=== PATIENT | female | born 1975 | race Caucasian/White ===

== ENCOUNTER 2023-04-12 10:57 | Outpatient (CLI) | payer BC | END 2023-04-12 10:58 | disposition home or self-care (01) | LOC: BICMAMMO 10:57 | PROVIDERS: ATTEND Family Medicine | DX: Z12.31 Encounter for screening mammogram for malignant neoplasm of breast (principal) | CPT/HCPCS: 77063; 77067 ==

== ENCOUNTER 2023-05-21 09:39 | Outpatient (CLI) | payer BC | END 2023-05-21 09:40 | disposition home or self-care (01) | LOC: DTY/OP 09:39 | PROVIDERS: ATTEND Surgery | DX: E66.01 Morbid (severe) obesity due to excess calories (principal); Z68.38 Body mass index [BMI] 38.0-38.9, adult | CPT/HCPCS: 97802 ==

== ENCOUNTER 2023-06-10 13:30 | Inpatient (IN) | payer BC ==
[2023-06-10 13:55] VITALS: BMI 39.9
[2023-06-12] MEDS ORDERED: CEFAZOLIN 2 GM VIAL ONE (09:26)
[2023-06-12] MEDS ORDERED: Sodium Chloride 0.9% 100 ML ONE (09:26)
[2023-06-12] MEDS ORDERED: PROPOFOL 20 ML ONE (09:47)
[2023-06-12] MEDS ORDERED: Ondansetron PF 4 MG/2 ML Vial ONE (09:47)
[2023-06-12] MEDS ORDERED: Rocuronium Bromide 10 MG/ML (10ML VIAL) ONE (09:47)
[2023-06-12] MEDS ORDERED: Lidocaine 1% PF 5 ML VIAL ONE (09:47)
[2023-06-12] MEDS ORDERED: Bupivacaine 0.25% HCL 30 ML VIAL ONE (10:07)
[2023-06-12] MEDS ORDERED: EPINEPHrine 1 MG/ML VIAL ONE (10:07)
[2023-06-12] MEDS ORDERED: fentaNYL PF 100 MCG/2 ML SYRINGE ONE (10:23)
[2023-06-12] MEDS ORDERED: Dexamethasone 20 MG/5 ML VIAL ONE (10:24)
[2023-06-12] MEDS ORDERED: Morphine Sulfate 2 MG/ML SYRINGE SLOW IVP PRN (11:07)
[2023-06-12] MEDS ORDERED: Meperidine HCl/PF 25 MG/ML VIAL SLOW IVP PRN (11:07)
[2023-06-12] MEDS ORDERED: Ondansetron HCl/PF 4 MG/2 ML Vial IVP PRN (11:07)
[2023-06-12] MEDS ORDERED: HYDROmorphone 2 MG/ML VIAL SLOW IVP PRN (11:07)
[2023-06-12] MEDS ORDERED: Promethazine HCl 25 MG/ML VIAL IM PRN ×3 (11:07→12:08)
[2023-06-12] MEDS ORDERED: SUGAMMADEX SODIUM 200 MG/2 ML VIAL ONE (11:44)
[2023-06-12] MEDS ORDERED: Ketorolac Tromethamine 30 MG (1 mL) VIAL ONE (11:48)
[2023-06-12] MEDS ORDERED: fentaNYL 50 mcg/mL 1 mL Vial ONE (11:49)
[2023-06-12] MEDS ORDERED: Dextrose 5% in Water 1,000 ML IV PRN (11:52)
[2023-06-12] MEDS ORDERED: Hydrocodone-Acetamin 15 ML UDCUP PO PRN (11:52)
[2023-06-12] MEDS ORDERED: Ondansetron PF 4 MG/2 ML Vial IVP PRN ×2 (11:52→12:08)
[2023-06-12] MEDS ORDERED: diphenhydrAMINE 50 MG/ML VIAL IVP PRN ×2 (11:52→12:08)
[2023-06-12] MEDS ORDERED: Dextrose 50% Abboject 50 ML SYRINGE SLOW IVP PRN (11:52)
[2023-06-12] MEDS ORDERED: Ipratropium/Albuterol 3 ML NEB NEB PRN (11:52)
[2023-06-12] MEDS ORDERED: hydrALAZINE 20 MG/ML VIAL SLOW IVP PRN (11:52)
[2023-06-12] MEDS ORDERED: Glucagon 1 MG/ML KIT IM PRN (11:52)
[2023-06-12] MEDS ORDERED: HYDROmorphone/PF 10 MG in Sodium Chloride 0.9% 99 ML IV PRN (12:08)
[2023-06-12] MEDS ORDERED: diphenhydrAMINE 25 MG CAP PO PRN (12:08)
[2023-06-12] MEDS ORDERED: Naloxone HCl 0.4 mg/ml Vial IV PRN (12:08)
[2023-06-12] MEDS ORDERED: diphenhydrAMINE 50 MG/ML VIAL IM PRN (12:08)
[2023-06-12] MEDS ORDERED: HYDROmorphone 2 MG/ML VIAL ONE (12:10)
[2023-06-12] MEDS ORDERED: ACTIVE PCA FS PRN (12:15)
[2023-06-12] MEDS ORDERED: Promethazine HCl 25 MG/ML VIAL ONE (12:41)
[2023-06-12] MEDS ORDERED: D5 1/2 NS w/20 mEq KCL 1,000 ML ONE (12:58)
[2023-06-12] MEDS: D5 1/2 NS w/20 mEq KCL 1,000 ML IV SCH (13:26)
[2023-06-12] MEDS: Ketorolac Tromethamine 30 MG (1 mL) VIAL IVP SCH (17:27)
[2023-06-13 06:51] LABS: #Monocytes 0.7 thou/uL (0.11-0.59); #Neutrophils 7.8 thou/uL (1.40-6.50); %Basophils 0.2 % (0.0-1.0); %Lymphocytes 11.7 % (21.0-51.0); %Neutrophils 80.6 % (42.0-75.0); Hematocrit 30.5 % (36.0-47.0); Hemoglobin 9.6 g/dL (12.0-16.0); Mean Corpuscular HGB CONC 31.5 g/dL (32.0-36.0); Mean Corpuscular Hemoglobin 26.3 pg (27.0-31.0); Mean Corpuscular Volume 83.6 fl (78.0-98.0); Mean Platelet Volume 10.6 fL (7.4-10.4); Platelet Count 239 10x3/uL (130-400); RBC Distribution Width 14.6 % (11.5-14.5); Red Blood Cell (RBC) Count 3.65 mill/uL (4.20-5.40); White Blood Cell (WBC) Count 9.6 10x3/uL (4.8-10.8)
[2023-06-13 07:24] LABS: Anion Gap 13 mmol/L (10-20); BUN (Urea Nitrogen) 9 mg/dL (7.0-18.7); Calc. Creatinine Clearance 148 mL/min (70-130); Calcium 8.7 mg/dL (7.8-10.44); Carbon Dioxide 22 mmol/L (22-29); Chloride 106 mmol/L (98-107); Estimated GFR 87; Glucose 134 mg/dL (70-105); Potassium 3.6 mmol/L (3.5-5.1); Sodium 137 mmol/L (136-145)
[2023-06-13 07:50] VITALS: BP 117/81; TEMP 98.5
[2023-06-13] MEDS: Pantoprazole 40 MG VIAL IVP SCH (08:52)
[2023-06-13] MEDS: Enoxaparin 40 MG (0.4 mL) SYRINGE SC SCH (08:52)
[2023-06-13] MEDS: Hydrocodone-Acetamin 15 ML UDCUP PO PRN (10:38)
== END 2023-06-13 10:45 | disposition home or self-care (01) | DRG 621 ==
LOC: INTOOBSV 06-12 07:59 → SURG A 06-12 07:59 → OBSVTOIN 06-12 11:52 → SURG B 06-12 15:02
PROVIDERS: ADMIT Surgery; ATTEND Surgery
PROC: 0DB64Z3 Excision of Stomach, Percutaneous Endoscopic Approach, Vertical (ICD-10-PCS; principal; 2023-06-12)
PROC: 8E0W4CZ Robotic Assisted Procedure of Trunk Region, Percutaneous Endoscopic Approach (ICD-10-PCS; 2023-06-12)
PROC: 3E033XZ Introduction of Vasopressor into Peripheral Vein, Percutaneous Approach (ICD-10-PCS; 2023-06-12)
DX: E66.01 Morbid (severe) obesity due to excess calories (principal); Z68.39 Body mass index [BMI] 39.0-39.9, adult; E78.00 Pure hypercholesterolemia, unspecified; I10 Essential (primary) hypertension; Z79.899 Other long term (current) drug therapy; Z98.891 History of uterine scar from previous surgery; Z80.9 Family history of malignant neoplasm, unspecified; Z83.3 Family history of diabetes mellitus; Z82.49 Family history of ischemic heart disease and other diseases of the circulatory system
CPT/HCPCS: 36415; 80048; 85025; 88307; C9113; J0171; J0665; J1100; J1170; J1650; J1885; J2405; J2550; J2704; J3010; J3480; J3490

== ENCOUNTER 2023-06-20 11:24 | Day surgery (SDC) | payer BC ==
[2023-06-20] MEDS ORDERED: Ondansetron PF 4 MG/2 ML Vial IVP PRN (11:35)
[2023-06-20 11:44] VITALS: BP 109/68; TEMP 98
[2023-06-20] MEDS: Sodium Chloride 0.9% 1,000 ML IV SCH (11:56)
[2023-06-20] MEDS: Multivitamins, Adult 10 ML, Thiamine HCl 100 MG in Sodium Chloride 0.9% 1,000 ML IV SCH (12:30)
== END 2023-06-20 14:14 | disposition home or self-care (01) ==
LOC: ONC/OP 11:24
PROVIDERS: ATTEND Surgery
DX: E86.0 Dehydration (principal)
CPT/HCPCS: 96360; 96361; J3411; J7050